=== PATIENT | female | born 1970 | race Caucasian/White ===

== ENCOUNTER 2016-07-26 17:32 | Emergency (ER) | payer MEDICAID ==
--- NOTE | 2016-07-26 18:48 | ED Physician Chart ---
Chief Complaint/HPI - Patient Information Date Seen:: 07/26/16 Time Seen:: 18:15 Chief Complaint:: back pain History of Present Illness:: Pt. set bag of groceries on floor and "couldn't get up". C/o back pain with movement. No actual trauma. Pain in lumbar area, does not radiate to legs. No fall. No prev. back surg.. Pt. is in R knee brace, anticipates surg.. Allergies:: Allergies Allergy/AdvReac Type Severity Reaction Status Date / Time erythromycin base Allergy Verified 07/26/16 18:19 Vitals:: Vital Signs - 8 hr 07/26/16 18:20 Temp 97.8 F HR 107 RR 16 BP 125/70 O2 Sat % 95 Historian:: Patient, Other ( present, will be able to help .) Review of Systems - Review of Systems General/Constitutional: No fever, No chills Skin: No skin lesions Head: No headache Eyes: No loss of vision ENT: No earache, No sore throat Neck: No neck pain Cardio Vascular: No chest pain, No palpitations Pulmonary: No SOB, No cough GI: No nausea, No vomiting, No diarrhea G/U: No dysuria Musculoskeletal: Back pain Psychiatric: No prior psych history Past Medical History - Past Medical History Past Medical History: HTN, Asthma/COPD, Other (GERD,) Family History: None Social History: Non Smoker, No Alcohol Psychiatricy History: None Medication: None (amlodipine, Qvar, inhalers, neurontin, omeprazole.) Family Medical History - Family Member Mother History Unknown: Yes Ethnicity: Non- Living Status: Unknown Hx Family Cancer: No Hx Family Coronary Artery Disease: Yes Hx Family Congestive Heart Failure: No Hx Family Hypertension: Yes Hx Family Stroke: No Hx Family Diabetes: No Hx Family Seizures: No Hx Family Dementia: No Hx Family AIDS: No Hx Family HIV: No Hx Family COPD: No Hx Family Hepatitis: No Hx Family Psychiatric Problems: No Hx Family Tuberculosis: No Physical Exam - Physical Examination General/Constitutional: Awake, Well-developed, well-nourished, Alert, No distress, GCS 15, Non-toxic appearing, Ambulatory Head: Atraumatic Eyes: Lids, conjuctiva normal, PERRL, EOMI Skin: Nl inspection Neck: Nontender Respiratory: Nl effort/Exclusion, Clear to Auscultation Cardio Vascular: RRR, No murmur, gallop, rubs GI: No tenderness/rebounding/guarding : No CVA tenderness Other Extremities comments:: R knee in brace. Neuro/Psych: Alert/oriented, Judgement/insight normal (str. leg raising equivalent is neg. No tenderness to midline lumbar, thoracic palpation, percussion.) ED Septic Shock - . Is Septic Shock (SBP<90, OR Lactate>4 mmol\\L) present?: No - <6hrs of presentation: Vital Signs: Vital Signs - 8 hr 07/26/16 18:20 Temp 97.8 F HR 107 RR 16 BP 125/70 O2 Sat % 95 Reassessment (Disposition) - Reassessment Reassessment Condition:: Improved - Diagnosis Diagnosis:: Dx: Acute low back strain. - Aftercare/Follow up Instructions Aftercare/Follow-Up Instructions:: Counseled pt & family regarding lab results/ diagnosis & need follow up Medication Prescribed:: Rx: Flexeril 10 mg sig: one po tid prn. No driving. Disp. #21 No refill. Rx: Rush sig: one po q4h prn. No driving. Disp. #18. No refill - Patient Disposition Discharge/Transfer:: Home Condition at Disposition:: Improved ED Discharge Plan - Patient Disposition Admit/Discharge/Transfer: PT DISCHARGED HOME Condition at Disposition: Improved
== END 2016-07-26 19:25 | disposition home or self-care (01) ==
LOC: ER 17:32
DX: S39.012A Strain of muscle, fascia and tendon of lower back, initial encounter (principal); I10 Essential (primary) hypertension; K21.9 Gastro-esophageal reflux disease without esophagitis; Z88.1 Allergy status to other antibiotic agents; X58.XXXA Exposure to other specified factors, initial encounter; Y93.89 Activity, other specified; Y92.89 Other specified places as the place of occurrence of the external cause; Y99.8 Other external cause status
CPT/HCPCS: 99283; 96372; J1885; Z7502

== ENCOUNTER 2017-04-21 17:49 | Emergency (ER) | payer MEDICAID | END 2017-04-21 19:46 | disposition left against medical advice (07) | LOC: ER 17:49 | DX: R11.0 Nausea (principal); Z53.21 Procedure and treatment not carried out due to patient leaving prior to being seen by health care provider ==

== ENCOUNTER 2017-12-18 14:23 | Emergency (ER) | payer MEDICAID ==
--- NOTE | 2017-12-18 15:13 | ED Physician Chart ---
ED Chief Complaint/HPI - Patient Information Date Seen:: 12/18/17 Time Seen:: 15:00 Chief Complaint:: cough History of Present Illness:: Patient's had a cough for 4 days. Her took her temperature and apparently told her she had a fever that she does not know how high her temperature was. Her sputum has been green and yellow and she also had a small amount of brown sputum. Patient received influenza vaccination this season. Allergies:: Allergies Allergy/AdvReac Type Severity Reaction Status Date / Time erythromycin base Allergy HIVES Verified 12/18/17 14:48 Vitals:: Vital Signs - 8 hr 12/18/17 14:35 Temp 98.2 F HR 112 RR 20 BP 126/83 O2 Sat % 95 Historian:: Patient Review:: Nurse's Note Reviewed ED Review of Systems - Review of Systems General/Constitutional: Fever Skin: No skin lesions Head: No headache Eyes: No loss of vision ENT: No earache Neck: No neck pain Cardio Vascular: No chest pain Pulmonary: Cough, Sputum, Other (pleuritic chest pain) GI: No nausea, No vomiting, No diarrhea G/U: No dysuria, No hematuria [employer]: No vaginal discharge Musculoskeletal: No bone or joint pain Endocrine: No polyuria Psychiatric: Prior psych history, Depression Hematopoietic: No bruising Allergic/Immuno: No urticaria Neurological: No syncope ED Past Medical History - Past Medical History Past Medical History: HTN, Asthma/COPD, PUD/GERD, Other (frequent vomiting) Family History: Diabetes Melitus Social History: Non Smoker, No Alcohol, Surgical History: Hysterectomy, other (right knee replacement surgery) Psychiatricy History: Depression Medication: Reviewed Family Medical History - Family Member Mother History Unknown: Yes Age: 51 Ethnicity: Non- Living Status: Hx Family Cancer: No Hx Family Coronary Artery Disease: Yes ([place]) Hx Family Congestive Heart Failure: No Hx Family Hypertension: Yes Hx Family Stroke: No Hx Family Diabetes: No Hx Family Seizures: No Hx Family Dementia: No Hx Family AIDS: No Hx Family HIV: No Hx Family COPD: No Hx Family Hepatitis: No Hx Family Psychiatric Problems: No Hx Family Tuberculosis: No Father Age: 66 Ethnicity: Non- Living Status: Still Living Hx Family Hypertension: Yes ED Physical Exam - Physical Examination General/Constitutional: Awake, Well-developed, well-nourished, Alert, No distress, GCS 15, Non-toxic appearing, Ambulatory Head: Atraumatic Eyes: Lids, conjuctiva normal, PERRL, EOMI Skin: Nl inspection, No rash, No skin lesions, No ecchymosis, Well hydrated, No lymphadenopathy ENMT: External ears, nose nl, Nasal exam nl, Lips, teeth, gums nl Neck: Nontender, Full ROM w/o pain, No JVD, No nuchal rigidity, No bruit, No mass, No stridor Respiratory: Nl effort/Exclusion, Clear to Auscultation, No Wheeze/Rhonchi/Rales Cardio Vascular: RRR, No murmur, gallop, rubs, NL S1 S2 GI: No tenderness/rebounding/guarding, No organomegaly, No hernia, Normal BS's, Nondistended, No mass/bruits, No McBurney tenderness : No CVA tenderness Extremities: No tenderness or effusion, Full ROM, normal strength in all extremities, No edema, Normal digits & nails Neuro/Psych: Alert/oriented, DTR's symmetric, Normal sensory exam, Normal motor strength, Judgement/insight normal, Mood normal, Normal gait, No focal deficits Misc: Normal back, No paraspinal tenderness ED Labs/Radiology/EKG Results - Lab Results Results: Influenza A and B are negative - Radiology Results Results: Chest x-ray normal ED Septic Shock - . Is Septic Shock (SBP<90, OR Lactate>4 mmol\L) present?: No - <6hrs of presentation: Vital Signs: Vital Signs - 8 hr 12/18/17 14:35 Temp 98.2 F HR 112 RR 20 BP 126/83 O2 Sat % 95 ED Reassessment (Disposition) - Reassessment Reassessment Condition:: Unchanged - Diagnosis Diagnosis:: Acute viral syndrome - Aftercare/Follow up Instructions Aftercare/Follow-Up Instructions:: Refer to Discharge Instructions - Patient Disposition Discharge/Transfer:: Home Condition at Disposition:: Stable, Unchanged
[2017-12-18 16:10] LABS: INF A SCREEN NEG FOR INF A; INF B SCREEN NEG FOR INF B
--- NOTE | 2017-12-19 08:28 | Diagnostic Imaging Report ---
CHEST X-RAY: AP view INDICATION: Cough COMPARISON: None FINDINGS: Mild increased right basal lung markings are noted. There is no focal consolidation or pleural effusions The heart is normal in size. The osseous structures demonstrate no acute abnormalities. IMPRESSION: Mild increased right basal lung markings, favoring atelectatic changes. Faint infiltrate is considered less likely. Please correlate clinically. No focal airspace consolidation identified.
== END 2017-12-18 17:12 | disposition home or self-care (01) ==
LOC: ER 14:23
DX: B34.9 Viral infection, unspecified (principal); R05 Cough; R50.9 Fever, unspecified; I10 Essential (primary) hypertension; J44.9 Chronic obstructive pulmonary disease, unspecified; J45.909 Unspecified asthma, uncomplicated; K21.9 Gastro-esophageal reflux disease without esophagitis; Z90.710 Acquired absence of both cervix and uterus; Z88.1 Allergy status to other antibiotic agents
CPT/HCPCS: 71045-TC; 87804-TC